=== PATIENT | male | born 1960 | race Caucasian/White ===

== ENCOUNTER → 2017-02-06 | Outpatient (REF) ==
--- NOTE | 2017-02-06 09:27 | DI ---
EXAM: PA and lateral views of the chest HISTORY: Pre employment screening COMPARISON: Chest x-ray 01/10/2015 and multiple priors FINDINGS: The cardiomediastinal silhouette is normal. There is no pneumothorax or pleural effusion . Stable left upper lobe calcified granuloma. There is no consolidation, nodule or mass. The osse ous structures are unremarkable. IMPRESSION: No acute cardiopulmonary process
== END ==
LOC: RAD 09:05
DX: Z02.89 Encounter for other administrative examinations (principal)